=== PATIENT | female | born 1980 | race Caucasian/White ===

== ENCOUNTER 2016-08-01 23:21 | Emergency (ER) | payer MEDICAID ==
[2016-08-01 23:28] VITALS: TEMP 98.2
[2016-08-01] MEDS ORDERED: NS IV ONE (23:30)
[2016-08-01] MEDS ORDERED: LIDOCAINE 2% IV ONE (23:30)
[2016-08-01] MEDS ORDERED: ONDANSETRON 4 MG/2 ML VIAL IVP ONE (23:38)
[2016-08-01] MEDS ORDERED: NS 1,000 ML IV ONE ×2 (23:38)
[2016-08-01] MEDS ORDERED: LIDOCAINE 2% 100 MG/5 ML SYR IVP ONE (23:38)
[2016-08-01] MEDS ORDERED: KETOROLAC 30 MG/1 ML SDV IVP ONE (23:38)
--- NOTE | 2016-08-01 23:43 | EDPHY ---
H & P Stated Complaint: sudden onset R flank pain, hx kidney stones HPI/ROS: HPI The patient presents with right-sided flank pain, she is brought in by ambulance after 3 hours of pain which is dull in nature and does not radiate, has been constant and severe. It is associated with 3 episodes of vomiting as well as dysuria. She does not have hematuria, she does not have a fever. She has had kidney stones before, last episode of renal colic was 3 years ago, she required lithotripsy at [facility]. REVIEW OF SYSTEMS Constitutional: No fever, no chills. Eyes: No discharge. ENT: No sore throat. Cardiovascular: No chest pain, no palpitations. Respiratory: No cough, no shortness of breath. Gastrointestinal: See HPI Genitourinary: No hematuria. Musculoskeletal: No back pain. Skin: No rashes. Neurological: No headache. 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, alcohol and marijuana use PHYSICAL General Appearance: Uncomfortable appearing writhing on the gurney, poor eye contact Eyes: Pupils equal and round no pallor or injection ENT, Mouth: Mucous membranes moist Respiratory: There are no retractions, lungs are clear to auscultation Cardiovascular: Regular rate and rhythm Gastrointestinal: Abdomen is soft and non-tender, no masses, bowel sounds normal Back: Mild right flank tenderness Neurological: A&O, moves all extremities Skin: Warm and dry, no rashes Musculoskeletal: Neck is supple non tender Extremities: symmetrical, full range of motion Psychiatric: Patient is oriented X 3, there is no agitation Source: Patient, EMS Exam Limitations: No limitations - Personal History Tetanus Vaccine Date: 2012 - Medical/Surgical History Hx Asthma: No Hx Chronic Respiratory Disease: No Hx Diabetes: No Hx Cardiac Disease: No Hx Renal Disease: No Hx Cirrhosis: No Hx Alcoholism: Yes Hx HIV/AIDS: No Hx Splenectomy or Spleen Trauma: No Other PMH: PANCREATITIS, KIDNEY STONES, ETOH abuse, psychiatric issues, PTSD, depression, back pain, peripheral neuropathy - Social History Smoking Status: Current every day smoker Constitutional: Initial Vital Signs Temperature (C) 36.8 C 08/01/16 23:26 Heart Rate 91 08/01/16 23:26 Respiratory Rate 18 08/01/16 23:26 Blood Pressure 125/76 H 08/01/16 23:26 O2 Sat (%) 93 08/01/16 23:26 O2 Delivery Mode Room Air Allergies/Adverse Reactions: amoxicillin [Amoxicillin] Allergy (Verified 08/01/16 23:28) Penicillins Allergy (Verified 08/01/16 23:28) Home Medications: Medication Instructions Recorded Herbals/Supplements -Info Only 1 ea PO DAILY 06/06/15 Gabapentin [Neurontin 300 MG (*)] 300 mg PO BID@,16 #60 cap 06/08/15 Gabapentin [Neurontin 300 MG (*)] 600 mg PO HS #60 cap 06/08/15 traMADol [Ultram 50 mg (*)] 100 mg PO Q6 PRN #30 tab 06/08/15 Medical Decision Making - Diagnostics Imaging: Discussed imaging studies w/ scuba diving teacher Radiologist ED Course/Re-evaluation: I met the paramedics at the bedside to obtain their report. The patient has an IV established, I have ordered pain medication. The patient received Toradol and lidocaine IV with minimal improvement in her symptoms. Labs were checked and were all unremarkable including urinalysis. Ultrasound demonstrates a small stone within the kidney, however no hydronephrosis is demonstrated making renal colic unlikely. The cause of her pain could be muscular. She has had multiple CT scans, thus I feel that the risks of additional radiation are greater than the benefit of performing a CT scan today given my low suspicion for serious intra-abdominal pathology. I looked up the patient in the PD MP, she has multiple recent prescriptions for Brent and Ativan from the same prescriber. I have instructed her to go home and rest, she can take anti-inflammatories for her pain. I doubt any serious pathology here. I feel her pain is likely musculoskeletal. Differential Diagnosis: This is a 36-year-old female with history of kidney stones who presents with several hours of right-sided flank pain and dysuria with vomiting. On exam, she is uncomfortable appearing. She is brought in by ambulance. Differential diagnosis includes ureterolithiasis, pyelonephritis, less likely appendicitis, musculoskeletal pain. - Data Points Laboratory Results: Laboratory Results 08/01/16 23:50 08/01/16 23:50 08/01/16 08/01/16 08/01/16 23:50 23:50 00:15 WBC 9.82 10^3/uL H 10^3/uL (3.80-9.50) RBC 4.57 10^6/uL 10^6/uL (4.18-5.33) Hgb 15.0 g/dL g/dL (12.6-16.3) Hct 44.6 % % (38.0-47.0) MCV 97.6 fL fL (81.5-99.8) MCH 32.8 pg pg (27.9-34.1) MCHC 33.6 g/dL g/dL (32.4-36.7) RDW 14.8 % % (11.5-15.2) Plt Count 314 10^3/uL 10^3/uL (150-400) MPV 9.3 fL fL (8.7-11.7) Neut % (Auto) 47.7 % % (39.3-74.2) Lymph % (Auto) 44.4 % % (15.0-45.0) [place] % (Auto) 6.0 % % (4.5-13.0) Eos % (Auto) 0.7 % % (0.6-7.6) Baso % (Auto) 1.0 % % (0.3-1.7) Nucleat RBC Rel Count 0.0 % % (0.0-0.2) Absolute Neuts (auto) 4.68 10^3/uL 10^3/uL (1.70-6.50) Absolute Lymphs (auto) 4.36 10^3/uL H 10^3/uL (1.00-3.00) Absolute Monos (auto) 0.59 10^3/uL 10^3/uL (0.30-0.80) Absolute Eos (auto) 0.07 10^3/uL 10^3/uL (0.03-0.40) Absolute Basos (auto) 0.10 10^3/uL 10^3/uL (0.02-0.10) Absolute Nucleated RBC 0.00 10^3/uL 10^3/uL (0-0.01) Immature Gran % 0.2 % % (0.0-1.1) Immature Gran # 0.02 10^3/uL 10^3/uL (0.00-0.10) Sodium 149 mEq/L H mEq/L (134-144) Potassium 4.2 mEq/L mEq/L (3.5-5.2) Chloride 106 mEq/L mEq/L (97-110) Carbon Dioxide 25 mEq/l mEq/l (22-31) Anion Gap 18 mEq/L H mEq/L (8-16) BUN 4 mg/dL L mg/dL (7-23) Creatinine 0.6 mg/dL mg/dL (0.6-1.0) Estimated GFR > 60 Glucose 83 mg/dL mg/dL (70-100) Calcium 10.0 mg/dL mg/dL (8.5-10.4) Total Bilirubin 0.7 mg/dL mg/dL (0.1-1.4) Conjugated Bilirubin 0.5 mg/dL mg/dL (0.0-0.5) Unconjugated Bilirubin 0.2 mg/dL mg/dL (0.0-1.1) AST 56 IU/L H IU/L (14-46) ALT 51 IU/L IU/L (9-52) Alkaline Phosphatase 96 IU/L IU/L (38-126) Total Protein 8.2 g/dL g/dL (6.3-8.2) Albumin 5.0 g/dL g/dL (3.5-5.0) Lipase 236.0 IU/L IU/L (23-300) Urine Color PALE YELLOW Urine Appearance CLEAR Urine pH 7.0 (5.0-7.5) Ur Specific [place] 1.001 L (1.002-1.030) Urine Protein NEGATIVE (NEGATIVE) Urine Ketones NEGATIVE (NEGATIVE) Urine Blood NEGATIVE (NEGATIVE) Urine Nitrate NEGATIVE (NEGATIVE) Urine Bilirubin NEGATIVE (NEGATIVE) Urine Urobilinogen NEGATIVE EU EU (0.2-1.0) Ur Leukocyte Esterase NEGATIVE (NEGATIVE) Urine Glucose NEGATIVE (NEGATIVE) Medications Given: Discontinued Medications Sodium Chloride (Ns) 1,000 mls @ 0 mls/hr IV ONCE ONE PRN Reason: Wide Open Stop: 08/01/16 23:39 Last Admin: 08/01/16 23:50 Dose: 1,000 mls Sodium Chloride (Ns) 1,000 mls @ 0 mls/hr IV ONCE ONE PRN Reason: Wide Open Stop: 08/01/16 23:39 Last Admin: 08/02/16 00:05 Dose: 1,000 mls Lidocaine HCl 4.5 ml/ Sodium (Chloride) 104.5 mls @ 627 mls/hr IV EDNOW ONE Stop: 08/01/16 23:39 Last Admin: 08/02/16 00:05 Dose: 104.5 mls Ketorolac Tromethamine (Toradol) 30 mg IVP EDNOW ONE Stop: 08/01/16 23:39 Last Admin: 08/01/16 23:50 Dose: 30 mg Ondansetron HCl (Zofran) 4 mg IVP EDNOW ONE Stop: 08/01/16 23:39 Last Admin: 08/01/16 23:50 Dose: 4 mg Departure - Departure Disposition: Home, Routine, Self-Care Clinical Impression: Right flank pain Alcohol intoxication Qualifiers: Complication of substance-induced condition: uncomplicated Qualified Code(s): F10.120 - Alcohol abuse with intoxication, uncomplicated Condition: Good Instructions: Flank Pain (ED) Additional Instructions: Please return to the emergency room if your worse in any way. You can take ibuprofen and Tylenol for your pain. Referrals: CRISTINA,UNKNOWN [Other] - As per Instructions
[2016-08-01 23:58] LABS: % IMMATURE GRANULYOCYTES 0.2 % (0.0-1.1); ABSOLUTE IMMATURE GRANULOCYTES 0.02 10^3/uL (0.00-0.10); ADD DIFF? NO; ADD MORPH? NO; ADD SCAN? NO; ATYPICAL LYMPHOCYTE FLAG 0 (0-99); FRAGMENT RBC FLAG 0 (0-99); HEMATOCRIT 44.6 % (38.0-47.0); LEFT SHIFT FLG 0 (0-99); LIPEMIA HEMOLYSIS FLAG 80 (0-99); MEAN CELL HEMOGLOBIN 32.8 pg (27.9-34.1); MEAN CELL HEMOGLOBIN CONCENTR. 33.6 g/dL (32.4-36.7); MEAN CELL VOLUME 97.6 fL (81.5-99.8); MEAN PLATELET VOLUME 9.3 fL (8.7-11.7); PLATELET CLUMPS FLAG 0 (0-99); PLATELET COUNT 314 10^3/uL (150-400); RED BLOOD CELL COUNT 4.57 10^6/uL (4.18-5.33); RED CELL DISTRIBUTION WIDTH 14.8 % (11.5-15.2)
[2016-08-02 00:18] LABS: ALANINE AMINOTRANSFERASE 51 IU/L (9-52); ALKALINE PHOSPHATASE 96 IU/L (38-126); ANION GAP 18 mEq/L (8-16); ASPARTATE AMINOTRANSFERASE 56 IU/L (14-46); BILIRUBIN,TOTAL 0.7 mg/dL (0.1-1.4); BILIRUBIN-CONJUGATED 0.5 mg/dL (0.0-0.5); BILIRUBIN-UNCONJUGATED 0.2 mg/dL (0.0-1.1); CARBON DIOXIDE 25 mEq/l (22-31); CHLORIDE 106 mEq/L (97-110); CREATININE 0.6 mg/dL (0.6-1.0); GLOMERULAR FILTRATION RATE > 60; GLUCOSE 83 mg/dL (70-100); POTASSIUM 4.2 mEq/L (3.5-5.2); SODIUM 149 mEq/L (134-144); TOTAL PROTEIN 8.2 g/dL (6.3-8.2)
[2016-08-02 00:26] LABS: COLOR PALE YELLOW; LEUKOCYTE ESTERASE,URINE NEGATIVE (NEGATIVE); NITRITE,URINE NEGATIVE (NEGATIVE)
[2016-08-02 01:08] VITALS: BP 119/71; PULSE 80; RESP 16; O2SAT 97
== END 2016-08-02 01:08 | disposition home or self-care (01) ==
LOC: EDUNIT#
DX: R10.9 Unspecified abdominal pain (principal); F10.120 Alcohol abuse with intoxication, uncomplicated; F17.200 Nicotine dependence, unspecified, uncomplicated
CPT/HCPCS: 96374; J1885; J2001; J2405

== ENCOUNTER 2017-02-03 20:01 | Emergency (ER) | payer MEDICAID ==
[2017-02-03 20:09] VITALS: BP 121/88; PULSE 91; RESP 18; TEMP 97.9; O2SAT 93
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
== END 2017-02-03 21:19 | disposition home or self-care (01) ==
DX: S20.211A Contusion of right front wall of thorax, initial encounter (principal); F17.200 Nicotine dependence, unspecified, uncomplicated; W01.198A Fall on same level from slipping, tripping and stumbling with subsequent striking against other object, initial encounter

== ENCOUNTER 2017-04-18 15:22 | Emergency (ER) | payer MEDICAID ==
[2017-04-18 15:38] VITALS: BP 118/77; PULSE 81; RESP 16; TEMP 97.9; O2SAT 94
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
[2017-04-18] MEDS: KETOROLAC 30 MG/1 ML SDV IVP ONE ×2 (15:46→15:47)
== END 2017-04-18 16:15 | disposition home or self-care (01) ==
LOC: EDUNIT#
PROC: 2W28X4Z Dressing of Right Upper Extremity using Bandage (ICD-10-PCS; principal; 2017-04-18)
PROC: 2W29X4Z Dressing of Left Upper Extremity using Bandage (ICD-10-PCS; principal; 2017-04-18)
DX: T22.211A Burn of second degree of right forearm, initial encounter (principal); T22.212A Burn of second degree of left forearm, initial encounter; F17.200 Nicotine dependence, unspecified, uncomplicated; T31.0 Burns involving less than 10% of body surface; X12.XXXA Contact with other hot fluids, initial encounter; Y92.63 Factory as the place of occurrence of the external cause; Y99.0 Civilian activity done for income or pay; Y93.G3 Activity, cooking and baking
CPT/HCPCS: J1885

== ENCOUNTER 2017-04-25 15:39 | Emergency (ER) | payer MEDICAID ==
[2017-04-25] MEDS ORDERED: IBUPROFEN 600 MG TAB PO ONE (15:48)
[2017-04-25 15:50] VITALS: BP 112/76; PULSE 83; RESP 16; O2SAT 96
--- NOTE | 2017-04-25 15:55 | EDPHY ---
General Narrative: CHIEF COMPLAINT: Right shoulder pain HISTORY OF PRESENT ILLNESS: Patient presents by EMS with complaints of right shoulder pain. She reports chronic pain with this that has worsened acutely today. She said she slipped on the ice earlier, and injury to the right shoulder attempting to catch herself. She did not strike the shoulder on the ground. She did not hit her head or lose consciousness. She has ongoing pain in the shoulder due to slap tear pending surgical intervention. She has no numbness or tingling. No weakness. No chest pain or shortness of breath. No injury elsewhere. No other associated complaints or modifying factors. ESTABLISHED ORTHOPEDIST: Dr. Macias REVIEW OF SYSTEMS: Ten systems reviewed and are negative unless otherwise noted in the HPI PAST MEDICAL HISTORY: Nephrolithiasis, neuropathy, shoulder labrum injury PAST SURGICAL HISTORY: No recent surgeries SOCIAL HISTORY: Daily smoker FAMILY HISTORY: Noncontributory EXAMINATION General Appearance: Alert, no distress Cardiovascular: Symmetric radial pulses 2+. Good signs of perfusion. Neurological: A&O, light sensation to the lateral shoulder in dorsum of the hand is intact. Business Applications Developer strength symmetric. Skin: Warm and dry, no rash. No petechiae or purpura. Extremities: Tenderness of the right shoulder humeral head. Range of motion limited due to pain. No signs of trauma. Psychiatric: Mood and affect normal DIFFERENTIAL DIAGNOSES: Including but not limited to sprain, strain, slap tear, rotator cuff injury, malingering MDM: 3:45 p.m. Reported right shoulder pain with fall earlier today. No obvious dislocation on inspection. X-ray has been ordered to rule out fracture. She is in no acute distress. She is asked for pain medications multiple times both pre- hospital and during my brief examination. I have looked up her prescription monitoring program reports she has 3 narcotic prescriptions in the past 4 weeks. 4:25 p.m. X-ray as read by me, without the aid of the radiologist, reveals no acute findings. 4:30 p.m. Notified by RN that the patient has asked multiple times to have her IV removed and has become belligerent with her. I have re-evaluated the patient at this time. I discussed the negative x-ray. She has been very disrespectful belligerent. She is claiming that the nurses lying to her. She is claiming that were not treating her pain and voiced her dissatisfaction for lack of narcotic administration. I discussed that she has no fracture or dislocation and that she does not warrant any narcotics at this time. I discussed that she has had multiple prescriptions for narcotics in the past 30 days and exhibits possible drug-seeking behavior. I informed her that should she feel her pain is warranted she should follow up with her previous prescribing physicians for further pain medication. She is discharged home in stable condition at this time SUPERVISION: This patient was independently evaluated without direct involvement of or examination by the attending physician. ED Precautions: Worsening pain. Erythema, edema, cyanosis, pallor, paresthesia or anesthesia. - History Smoking Status: Current every day smoker - Objective Allergies/Adverse Reactions: amoxicillin [Amoxicillin] Allergy (Verified 02/03/17 20:08) Penicillins Allergy (Verified 02/03/17 20:08) Home Medications: Medication Instructions Recorded Gabapentin [Neurontin 300 MG (*)] 300 mg PO BID@,16 #60 cap 06/08/15 Gabapentin [Neurontin 300 MG (*)] 600 mg PO HS #60 cap 06/08/15 Cephalexin [Keflex] 500 mg PO TID 5 Days cap 04/18/17 Hydrocodone/APAP 5/325 [[place] 1 tab PO Q6 PRN #10 tab 04/18/17 5/325 (RX)] Wellbutrin Sr 04/18/17 Departure - Departure Disposition: Home, Routine, Self-Care Clinical Impression: Sprain of shoulder, right Qualifiers: Encounter type: initial encounter Shoulder sprain type: unspecified sprain Qualified Code(s): S43.401A - Unspecified sprain of right shoulder joint, initial encounter Condition: Good Instructions: Shoulder Sprain (ED) Additional Instructions: 1. Ibuprofen as prescribed as needed 2. Contact the on-call orthopedist as provided for outpatient care 3. ED precautions as discussed Referrals: Sergey Michael MD [Medical Doctor] - As per Instructions
--- NOTE | 2017-04-25 16:05 | ASMTCASEMG ---
Case Management Evaluation Functional: Able to Answers: Yes return Home with Prior Level of Function/Care Psychosocial Needs: Answers: Active Substance Abuse Notes: NO NARC- LIST Behavioral Health Issue Notes: Borderline personality disorder Date Signed: 04/25/2017 04:04 PM Electronically Signed By:Kendrick Lockett LCSW
--- NOTE | 2017-04-25 16:06 | ASMTLACE ---
LACE Length of stay for Answers: Less than 1 day current admission Acuity / Level of Answers: No Care: Did the patient have an inpatient admission? Comorbidities - select Answers: Opioid dependence all that apply / Chronic pain # of Emergency department Answers: 3-4 visits in the last 6 months Social determinants Answers: History of substance abuse (ETHO, street drugs, prescription drugs, etc.) Mental health diagnosis (anxiety, depression, pers onality disorders, etc.) Score: 13 Date Signed: 04/25/2017 04:05 PM Electronically Signed By:Kendrick Lockett LCSW
== END 2017-04-25 16:35 | disposition home or self-care (01) ==
LOC: EDUNIT#
DX: S43.401A Unspecified sprain of right shoulder joint, initial encounter (principal); F17.200 Nicotine dependence, unspecified, uncomplicated; W00.0XXA Fall on same level due to ice and snow, initial encounter

== ENCOUNTER 2017-06-19 16:58 | Emergency (ER) | payer MEDICAID ==
[2017-06-19 17:26] LABS: PLATELET COUNT 250 10^3/uL (150-400)
--- NOTE | 2017-06-19 17:40 | EDPHY ---
H & P Time Seen by Provider: 06/19/17 17:06 HPI/ROS: CHIEF COMPLAINT: Suicidal ideation HISTORY OF PRESENT ILLNESS: 37-year-old female with a history of anxiety, PTSD and depression presents with suicidal ideation. She had 4 shots of alcohol this afternoon, became quite sad and told someone that she would stick a director of vital statistics knife through her neck to kill herself. PD was contacted and she was placed on an M1 hold. She was transported to the emergency department by EMS. She has a recent history of auditory hallucinations and insomnia. She was recently placed on Seroquel and Valium because of severe anxiety and insomnia. No prior suicidal attempt. REVIEW OF SYSTEMS: Constitutional: No fever, no chills Eyes: No visual changes ENT: No sore throat Respiratory: No cough, no shortness of breath Cardiac: No chest pain Gastrointestinal: No nausea, no vomiting, no abdominal pain Genitourinary: No hematuria, no dysuria Musculoskeletal: No leg pain or swelling Skin: No rash Neurological: No headache, no weakness Past Medical/Surgical History: Depression PTSD Anxiety Social History: Heavy alcohol use No IVDA or illicit drug use. Smoking Status: Current every day smoker Physical Exam: General Appearance: Alert, cooperative, tearful Eyes: Pupils equal and round, conjunctival injection ENT, Mouth: Mucous membranes moist Neck: Normal inspection Respiratory: Lungs are clear to auscultation Cardiovascular: Regular rate and rhythm Gastrointestinal: Abdomen is soft and nontender Neurological: A&O, nonfocal, normal gait Skin: Warm and dry Extremities: Multiple healed metcalf on the volar aspect of the forearms Psychiatric: Sad and tearful Constitutional: Initial Vital Signs Temperature (C) 36.4 C 06/19/17 17:16 Heart Rate 81 06/19/17 17:16 Respiratory Rate 18 06/19/17 17:16 Blood Pressure 130/105 H 06/19/17 17:16 O2 Sat (%) 96 06/19/17 17:16 O2 Delivery Mode Room Air Allergies/Adverse Reactions: amoxicillin [Amoxicillin] Allergy (Verified 02/03/17 20:08) Penicillins Allergy (Verified 02/03/17 20:08) Home Medications: Medication Instructions Recorded Diazepam [Valium 5 MG (*)] 5 mg PO QID 06/19/17 Gabapentin [Neurontin 300 MG (*)] 900 mg PO TID 06/19/17 Ondansetron Odt [Zofran Odt 4 mg 4 mg PO Q6H PRN 06/19/17 (*)] QUEtiapine FUMARATE [Seroquel 100 100 - 200 mg PO HS 06/19/17 mg (*)] buPROPion XL [Wellbutrin Xl] 150 mg PO DAILY 06/19/17 Medical Decision Making ED Course/Re-evaluation: This patient presents after she made a suicidal statement. She denies suicidal ideation on my initial history taking. Medically cleared for mental health evaluation. This patient was seen by mental health and felt appropriate for outpatient treatment of depression. I agree with this assessment. The patient denies suicidal ideation. The 72 hr mental health hold was lifted by me. Differential Diagnosis: Differential diagnosis includes though it is not limited to suicidal ideation, overdose, acute psychosis, self-injury, alcohol withdrawal. - Data Points Laboratory Results: Laboratory Results 06/19/17 17:10 06/19/17 17:10 Medications Given: Discontinued Medications Diazepam (Valium) 5 mg PO EDNOW ONE Stop: 06/19/17 18:35 Last Admin: 06/19/17 18:39 Dose: 5 mg Gabapentin (Neurontin) 900 mg PO EDNOW ONE Stop: 06/19/17 21:09 Last Admin: 06/19/17 21:20 Dose: 900 mg Nicotine (Nicoderm Cq) 14 mg TD EDNOW ONE Stop: 06/19/17 17:58 Last Admin: 06/19/17 18:01 Dose: 14 mg Quetiapine Fumarate (Seroquel) 100 mg PO EDNOW ONE Stop: 06/19/17 21:09 Last Admin: 06/19/17 21:20 Dose: 100 mg Tramadol HCl (Ultram) 50 mg PO EDNOW ONE Stop: 06/19/17 21:10 Last Admin: 06/19/17 21:20 Dose: 50 mg Departure - Departure Disposition: Home, Routine, Self-Care Clinical Impression: Suicidal ideation Alcohol intoxication Qualifiers: Complication of substance-induced condition: uncomplicated Qualified Code(s): F10.920 - Alcohol use, unspecified with intoxication, uncomplicated Condition: Fair Instructions: Alcohol Intoxication (ED), Suicide Prevention for Adults (ED) Referrals: [facility] [Clinic] - As per Instructions (Follow-up tomorrow as suggested.)
[2017-06-19] MEDS ORDERED: NICOTINE 14 MG/24 HR PATCH TD ONE (17:57)
[2017-06-19] MEDS ORDERED: NICOTINE 21 MG/24 HR PATCH TD ONE (17:58)
[2017-06-19] MEDS ORDERED: DIAZEPAM 5 MG TAB PO ONE (18:34)
[2017-06-19] MEDS ORDERED: DIAZEPAM 5 MG TAB ONE (18:35)
[2017-06-19] MEDS ORDERED: QUEtiapine FUMARATE 200 MG TAB PO ONE (21:08)
[2017-06-19] MEDS ORDERED: GABAPENTIN 100 MG CAP PO ONE (21:08)
[2017-06-19] MEDS ORDERED: traMADol 50 MG TAB PO ONE (21:09)
[2017-06-19 21:48] VITALS: BP 106/77
== END 2017-06-19 21:56 | disposition home or self-care (01) ==
LOC: EDUNIT#
DX: R45.851 Suicidal ideations (principal); F10.920 Alcohol use, unspecified with intoxication, uncomplicated; F17.200 Nicotine dependence, unspecified, uncomplicated
CPT/HCPCS: 80305; G0480

== ENCOUNTER 2017-07-09 00:54 | Emergency (ER) | payer MEDICAID ==
[2017-07-09] MEDS ORDERED: NS 1,000 ML IV ONE ×2 (00:59→01:20)
[2017-07-09] MEDS ORDERED: NALOXONE HCL 0.4 MG/ML INJ IVP ONE (01:00)
--- NOTE | 2017-07-09 01:07 | EDPHY ---
H & P Time Seen by Provider: 07/09/17 00:54 HPI/ROS: HPI CHIEF COMPLAINT: Drug overdose, mumbling speech, sleepy HISTORY OF PRESENT ILLNESS: This patient is a 37-year-old female who presents to the emergency room by EMS from [facility] for being excessively sleepy and concerned that she may have ingested or overdose on benzodiazepine. EMS reports that she may have taken Valium, as well as possible narcotics as well as possible alcohol. She is at [facility] as of last week for rehabilitation. Staff there called 911 as she was found slumped over and chairs excessively sleepy. Hard to arouse. 911 was called the make contact with her brought her to the emergency room. EMS reports in route she states she may have taken some Valium. Upon arrival to the emergency room the patient is very sleepy. She has mumbling speech with lid lag. It Is hard understand what she is saying. Past Medical History: PTSD, anxiety, depression, heavy alcohol use Past Surgical History: No recent surgery Social History: Lives at [facility]. Family History: Noncontributory ROS REVIEW OF SYSTEMS: Review of systems limited due to patient's clinical state. Exam Constitutional sleepy, triage nursing summary reviewed, vital signs reviewed Eyes pupils are 3 mm equal sluggish, does have some horizontal beating nystagmus on exam, HENT normal inspection, atraumatic, moist mucus membranes, no epistaxis, neck supple/ no meningismus, no raccoon eyes. Respiratory clear to auscultation bilaterally, normal breath sounds, no respiratory distress, no wheezing. Cardiovascular rate normal, regular rhythm, no murmur, no edema, distal pulses normal. Gastrointestinal soft, non-tender, no rebound, no guarding, normal bowel sounds, no distension, no pulsatile mass. Genitourinary no CVA tenderness. Musculoskeletal no midline vertebral tenderness, full range of motion, no calf swelling, no tenderness of extremities, no meningismus, good pulses, neurovascularly intact. Skin pink, warm, & dry, no rash, skin atraumatic. Neurologic excessively sleepy, mumbling speech but moves everything, Psychiatric normal mood/affect. Heme/Lymph/Immune no lymphadenopathy. 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 Monitor closely for worsening depression of her mental state. Re-evaluation: EKG interpretation by me on record in [employer] system. Impression time of EKG 1:08 a.m., sinus rhythm rate of [address] elevation no ST depression no prolonged intervals. No signs of WPW or Brugada. ED x-ray chest one view: Negative for acute cardiopulmonary disease. 0123: 2 mg IV Narcan was given. There was no response. Still sleepy. 0340: Patient re-evaluated this time resting comfortably. Not excessively sleepy. Vital signs are stable. Urine drug screen pending 0433: Patient drug screen positive for benzos. This was most likely cause of her sedation. I did re-evaluate her at this time she is resting comfortably she is alert and oriented. She is awake. Hemodynamically stable with no recent a bray. Will plan for be discharged back to [facility]. Denies SI or HI denies want hurt herself or anybody else. 0518AM: Patient up ambulating speaking coherently to staff. She asked for a coloring book and crowns. She has no complaints. She denies want hurt herself or anybody else. She would like to be discharged back to her residence. She states she took Valium and had a glass of beer last night to go to sleep. She ambulated well. Mental state is back to baseline. She is not excessively sleepy. I will allow her to be discharged back to her living facility. Patient is taking Valium earlier this evening. Source: Patient, EMS - Personal History Tetanus Vaccine Date: 2012 - Medical/Surgical History Hx Asthma: No Hx Chronic Respiratory Disease: No Hx Diabetes: No Hx Cardiac Disease: No Hx Renal Disease: No Hx Cirrhosis: No Hx Alcoholism: Yes Hx HIV/AIDS: No Hx Splenectomy or Spleen Trauma: No Other PMH: PANCREATITIS, KIDNEY STONES, ETOH abuse, psychiatric issues, PTSD, depression, back pain, peripheral neuropathy - Social History Smoking Status: Current every day smoker Constitutional: Initial Vital Signs Temperature (C) 36.4 C 07/09/17 01:02 Heart Rate 80 07/09/17 01:02 Respiratory Rate 18 07/09/17 01:02 Blood Pressure 99/60 L 07/09/17 01:02 O2 Sat (%) 97 07/09/17 01:02 O2 Delivery Mode Room Air Allergies/Adverse Reactions: amoxicillin [Amoxicillin] Allergy (Verified 02/03/17 20:08) Penicillins Allergy (Verified 02/03/17 20:08) Home Medications: Medication Instructions Recorded Diazepam [Valium 5 MG (*)] 5 mg PO QID 06/19/17 Gabapentin [Neurontin 300 MG (*)] 900 mg PO TID 06/19/17 Ondansetron Odt [Zofran Odt 4 mg 4 mg PO Q6H PRN 06/19/17 (*)] QUEtiapine FUMARATE [Seroquel 100 100 - 200 mg PO HS 06/19/17 mg (*)] buPROPion XL [Wellbutrin Xl] 150 mg PO DAILY 06/19/17 Medical Decision Making - Data Points Laboratory Results: Laboratory Results 07/09/17 00:50 07/09/17 00:50 07/09/17 07/09/17 07/09/17 04:00 01:15 00:50 WBC RBC Hgb Hct MCV MCH MCHC RDW Plt Count MPV Neut % (Auto) Lymph % (Auto) [place] % (Auto) Eos % (Auto) Baso % (Auto) Nucleat RBC Rel Count Absolute Neuts (auto) Absolute Lymphs (auto) Absolute Monos (auto) Absolute Eos (auto) Absolute Basos (auto) Absolute Nucleated RBC Immature Gran % Immature Gran # PT 13.4 SEC SEC (12.0-15.0) INR 1.00 (0.83-1.16) APTT 33.0 SEC SEC (23.0-38.0) Sodium Potassium Chloride Carbon Dioxide Anion Gap BUN Creatinine Estimated GFR Glucose Calcium Magnesium Total Bilirubin Conjugated Bilirubin Unconjugated Bilirubin AST ALT Alkaline Phosphatase Total Protein Albumin Lipase Beta HCG, Qual NEGATIVE Salicylates Urine Opiates Screen NEGATIVE (NEGATIVE) Acetaminophen Urine Barbiturates NEGATIVE (NEGATIVE) Ur Phencyclidine Scrn NEGATIVE (NEGATIVE) Ur Amphetamine Screen NEGATIVE (NEGATIVE) U Benzodiazepines Scrn NON-NEGATIVE H (NEGATIVE) Urine Cocaine Screen NEGATIVE (NEGATIVE) U Marijuana (THC) Screen NON-NEGATIVE H (NEGATIVE) Ethyl Alcohol 07/09/17 07/09/17 00:50 00:50 WBC 8.27 10^3/uL 10^3/uL (3.80-9.50) RBC 3.97 10^6/uL L 10^6/uL (4.18-5.33) Hgb 12.8 g/dL g/dL (12.6-16.3) Hct 38.8 % % (38.0-47.0) MCV 97.7 fL fL (81.5-99.8) MCH 32.2 pg pg (27.9-34.1) MCHC 33.0 g/dL g/dL (32.4-36.7) RDW 14.6 % % (11.5-15.2) Plt Count 341 10^3/uL 10^3/uL (150-400) MPV 9.2 fL fL (8.7-11.7) Neut % (Auto) 33.5 % L % (39.3-74.2) Lymph % (Auto) 56.8 % H % (15.0-45.0) [place] % (Auto) 4.8 % % (4.5-13.0) Eos % (Auto) 3.5 % % (0.6-7.6) Baso % (Auto) 1.3 % % (0.3-1.7) Nucleat RBC Rel Count 0.0 % % (0.0-0.2) Absolute Neuts (auto) 2.76 10^3/uL 10^3/uL (1.70-6.50) Absolute Lymphs (auto) 4.70 10^3/uL H 10^3/uL (1.00-3.00) Absolute Monos (auto) 0.40 10^3/uL 10^3/uL (0.30-0.80) Absolute Eos (auto) 0.29 10^3/uL 10^3/uL (0.03-0.40) Absolute Basos (auto) 0.11 10^3/uL H 10^3/uL (0.02-0.10) Absolute Nucleated RBC 0.00 10^3/uL 10^3/uL (0-0.01) Immature Gran % 0.1 % % (0.0-1.1) Immature Gran # 0.01 10^3/uL 10^3/uL (0.00-0.10) PT INR APTT Sodium 140 mEq/L mEq/L (135-145) Potassium 5.4 mEq/L H mEq/L (3.5-5.2) Chloride 103 mEq/L mEq/L (97-110) Carbon Dioxide 26 mEq/l mEq/l (22-31) Anion Gap 11 mEq/L mEq/L (8-16) BUN 11 mg/dL mg/dL (7-23) Creatinine 0.6 mg/dL mg/dL (0.6-1.0) Estimated GFR > 60 Glucose 78 mg/dL mg/dL (70-100) Calcium 9.8 mg/dL mg/dL (8.5-10.4) Magnesium 2.1 mg/dL mg/dL (1.6-2.3) Total Bilirubin 0.6 mg/dL mg/dL (0.1-1.4) Conjugated Bilirubin 0.6 mg/dL H mg/dL (0.0-0.5) Unconjugated Bilirubin 0.0 mg/dL mg/dL (0.0-1.1) AST 37 IU/L IU/L (14-46) ALT 43 IU/L IU/L (9-52) Alkaline Phosphatase 41 IU/L IU/L (38-126) Total Protein 7.5 g/dL g/dL (6.3-8.2) Albumin 4.4 g/dL g/dL (3.5-5.0) Lipase 115 IU/L IU/L (23-300) Beta HCG, Qual Salicylates < 1.0 mg/dL L mg/dL (2.0-20.0) Urine Opiates Screen Acetaminophen < 10 mcg/mL L mcg/mL (10-30) Urine Barbiturates Ur Phencyclidine Scrn Ur Amphetamine Screen U Benzodiazepines Scrn Urine Cocaine Screen U Marijuana (THC) Screen Ethyl Alcohol 43 mg/dL H mg/dL (0-10) Medications Given: Discontinued Medications Sodium Chloride (Ns) 1,000 mls @ 0 mls/hr IV EDNOW ONE; Wide Open PRN Reason: Protocol Stop: 07/09/17 01:00 Last Admin: 07/09/17 01:05 Dose: 1,000 mls Sodium Chloride (Ns) 1,000 mls @ 0 mls/hr IV ONCE ONE PRN Reason: Wide Open Stop: 07/09/17 01:21 Last Admin: 07/09/17 01:24 Dose: 1,000 mls Naloxone HCl (Narcan) 2 mg IVP EDNOW ONE Stop: 07/09/17 01:01 Last Admin: 07/09/17 01:14 Dose: 2 mg Departure - Departure Disposition: Home, Routine, Self-Care Clinical Impression: Polysubstance abuse Condition: Good Instructions: Polysubstance Abuse (ED) Referrals: Patient,NotPresent [Primary Care Provider] - As per Instructions
--- NOTE | 2017-07-09 01:10 | CPEKG ---
Heart Rate: 75 RR Interval: 800 P-R Interval: 160 QRSD Interval: 68 QT Interval: 388 QTC Interval: 434 P Madison: 46 QRS Madison: 55 T Wave Madison: 39 EKG Severity - NORMAL ECG - EKG Impression: SINUS RHYTHM Electronically Signed By: Raheem Briceno 09-Jul-2017 06:52:54
[2017-07-09] MEDS ORDERED: NALOXONE HCL 0.4 MG/ML INJ ONE (01:11)
[2017-07-09 01:17] LABS: PLATELET COUNT 341 10^3/uL (150-400)
[2017-07-09 01:32] LABS: PROTIME(PATIENT) 13.4 SEC (12.0-15.0)
[2017-07-09 05:43] VITALS: BP 102/68
== END 2017-07-09 06:08 | disposition home or self-care (01) ==
LOC: EDUNIT#
DX: F19.10 Other psychoactive substance abuse, uncomplicated (principal); E86.9 Volume depletion, unspecified; F17.200 Nicotine dependence, unspecified, uncomplicated
CPT/HCPCS: 80305; 96374; G0480; J2310

== ENCOUNTER 2017-07-09 19:41 | Emergency (ER) | payer MEDICAID ==
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
[2017-07-09 20:45] LABS: PLATELET COUNT 346 10^3/uL (150-400)
[2017-07-10] MEDS ORDERED: GABAPENTIN 300 MG CAP PO ONE ×2 (00:49→01:15)
[2017-07-10] MEDS ORDERED: QUEtiapine FUMARATE 300 MG TAB PO ONE ×3 (00:50→20:41)
[2017-07-10] MEDS: GABAPENTIN 300 MG CAP PO SCH ×2 (11:22→19:35)
[2017-07-10] MEDS: buPROPion XL 150 MG TAB PO SCH (12:20)
[2017-07-10] MEDS ORDERED: NICOTINE 21 MG/24 HR PATCH TD ONE (20:42)
[2017-07-11] MEDS: GABAPENTIN 300 MG CAP PO SCH ×2 (04:05→08:03)
[2017-07-11] MEDS: buPROPion XL 150 MG TAB PO SCH (08:03)
[2017-07-11 11:22] VITALS: BP 100/65
== END 2017-07-11 11:31 ==
LOC: EDUNIT#
DX: T42.4X2A Poisoning by benzodiazepines, intentional self-harm, initial encounter (principal); F17.200 Nicotine dependence, unspecified, uncomplicated
CPT/HCPCS: 80305; G0480

== ENCOUNTER 2017-07-17 19:17 | Emergency (ER) | payer MEDICAID ==
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
[2017-07-17] MEDS ORDERED: QUEtiapine FUMARATE 300 MG TAB PO ONE (21:18)
[2017-07-17] MEDS ORDERED: GABAPENTIN 300 MG CAP PO ONE (21:18)
[2017-07-17] MEDS ORDERED: DIAZEPAM 5 MG TAB PO ONE (21:18)
[2017-07-17 21:57] VITALS: BP 110/70
== END 2017-07-17 22:57 | disposition home or self-care (01) ==
DX: F41.9 Anxiety disorder, unspecified (principal); F31.9 Bipolar disorder, unspecified; F43.10 Post-traumatic stress disorder, unspecified; F17.200 Nicotine dependence, unspecified, uncomplicated
CPT/HCPCS: 80305; G0480

== ENCOUNTER 2017-11-13 19:56 | Emergency (ER) | payer MEDICAID ==
--- NOTE | 2017-11-13 20:30 | EDPHY ---
H & P Time Seen by Provider: 11/13/17 20:29 HPI/ROS: Chief complaint. Headache HPI. Patient is a 37-year-old female with headache for 3 days. She awoke with the headache and it was fairly mild to begin with but has gradually worsened over the past 3 days. No sudden or thunderclap onset. Slightly dizzy on standing. She tells me decreased peripheral vision and straight on vision is slightly blurry. The headache is by temporal. Nausea vomiting yesterday but not today. She feels tired and somewhat dizzy on standing. She has not had similar headache previously. She denies fever her upper respiratory symptoms. No recent head injury. No chest or abdominal pain. No weakness or paresthesias to arms or legs. ROS Constitutional. no fever/chills, no weakness Eyes. Blurry vision and decreased peripheral vision ENT. no sore throat, no nasal drainage Cardiovascular. no chest pain Respiratory. no shortness of breath, no cough Abdominal. no abdominal pain, no nausea/vomiting, no diarrhea . no problems urinating MS. no calf pain/swelling, no neck/back pain, no joint pain Skin. no rash Lymph. no swollen glands Neuro. Headache Past Medical/Surgical History: Pancreatitis, kidney stones, alcoholism, PTSD, depression, anxiety, peripheral neuropathy Social History: , daily smoker, no alcohol Smoking Status: Heavy smoker Physical Exam: General Appearance: Alert well-developed female mild distress vital signs are stable Eyes: Pupils equal round reactive. Funduscopic exam is normal. Visual reaves testing appears normal without field cuts. ENT, Mouth: Mucous membranes are moist. Respiratory: There are no retractions, lungs are clear to auscultation. Cardiovascular: Regular rate and rhythm. Gastrointestinal: Abdomen is soft and nontender, no masses, bowel sounds normal. Neurological: Awake and alert, sensory and motor exams grossly normal. Speech is normal. Cranial nerves are intact. There is no pronator drift. Finger-to- nose and [id number] are intact bilaterally Skin: Warm and dry, no rashes. Musculoskeletal: Neck is supple nontender. Extremities symmetrical, full range of motion. Psychiatric: Patient is oriented X 3, there is no agitation. Constitutional: Initial Vital Signs Temperature (C) 37.1 C 11/13/17 20:00 Heart Rate 86 11/13/17 20:00 Respiratory Rate 16 11/13/17 20:00 Blood Pressure 133/105 H 11/13/17 20:00 O2 Sat (%) 98 11/13/17 20:00 O2 Delivery Mode Room Air Allergies/Adverse Reactions: amoxicillin [Amoxicillin] Allergy (Verified 07/09/17 19:43) Penicillins Allergy (Verified 07/09/17 19:43) Home Medications: Medication Instructions Recorded Gabapentin [Neurontin 300 MG (*)] 900 mg PO TID 06/19/17 QUEtiapine FUMARATE [Seroquel 100 100 - 200 mg PO HS 06/19/17 mg (*)] Anabuse 11/13/17 Zofran 11/13/17 buPROPion [Wellbutrin 100mg (*)] 11/13/17 Medical Decision Making - Diagnostics Imaging Results: Imaging Impressions Head CT 11/13/17 20:52 Impression: No acute intracranial findings. Dr. Poon was notified of these findings at 9:36 PM on 11/13/[address] head reviewed by me and discussed with radiologist shows no evidence of intracranial blood or tumor. It is a normal head CT Procedures: IV normal saline ED Course/Re-evaluation: Re-evaluation 9:45 p.m.. Patient is stable. Somewhat improved though continuing with headache. Neurologically intact. Patient and I discussed imaging and lab results. We discussed treatment plan including further medication. She expresses understanding and agreement Re-evaluation 10:50 p.m. Patient is much better. Essentially headache gone. Neurologically intact. Conversational. Differential Diagnosis: I considered intracranial bleeding, subarachnoid hemorrhage, migraines, tension headache. No evidence for intracranial bleeding or subarachnoid hemorrhage - Data Points Laboratory Results: Laboratory Results 11/13/17 20:34 11/13/17 20:34 11/13/17 11/13/17 20:34 20:34 WBC 7.45 10^3/uL 10^3/uL (3.80-9.50) RBC 4.14 10^6/uL L 10^6/uL (4.18-5.33) Hgb 13.3 g/dL g/dL (12.6-16.3) Hct 38.7 % % (38.0-47.0) MCV 93.5 fL fL (81.5-99.8) MCH 32.1 pg pg (27.9-34.1) MCHC 34.4 g/dL g/dL (32.4-36.7) RDW 13.2 % % (11.5-15.2) Plt Count 300 10^3/uL 10^3/uL (150-400) MPV 9.1 fL fL (8.7-11.7) Neut % (Auto) 58.9 % % (39.3-74.2) Lymph % (Auto) 32.6 % % (15.0-45.0) [place] % (Auto) 6.7 % % (4.5-13.0) Eos % (Auto) 0.8 % % (0.6-7.6) Baso % (Auto) 0.9 % % (0.3-1.7) Nucleat RBC Rel Count 0.0 % % (0.0-0.2) Absolute Neuts (auto) 4.38 10^3/uL 10^3/uL (1.70-6.50) Absolute Lymphs (auto) 2.43 10^3/uL 10^3/uL (1.00-3.00) Absolute Monos (auto) 0.50 10^3/uL 10^3/uL (0.30-0.80) Absolute Eos (auto) 0.06 10^3/uL 10^3/uL (0.03-0.40) Absolute Basos (auto) 0.07 10^3/uL 10^3/uL (0.02-0.10) Absolute Nucleated RBC 0.00 10^3/uL 10^3/uL (0-0.01) Immature Gran % 0.1 % % (0.0-1.1) Immature Gran # 0.01 10^3/uL 10^3/uL (0.00-0.10) Sodium 139 mEq/L mEq/L (135-145) Potassium 4.1 mEq/L mEq/L (3.3-5.0) Chloride 102 mEq/L mEq/L (97-110) Carbon Dioxide 27 mEq/l mEq/l (22-31) Anion Gap 10 mEq/L mEq/L (8-16) BUN 8 mg/dL mg/dL (7-23) Creatinine 0.7 mg/dL mg/dL (0.6-1.0) Estimated GFR > 60 Glucose 88 mg/dL mg/dL (70-100) Calcium 9.9 mg/dL mg/dL (8.5-10.4) Medications Given: Discontinued Medications Dexamethasone (Decadron Injection) 10 mg IVP EDNOW ONE Stop: 11/13/17 20:53 Last Admin: 11/13/17 21:10 Dose: 10 mg Diphenhydramine HCl (Benadryl Injection) 25 mg IVP EDNOW ONE Stop: 11/13/17 20:53 Last Admin: 11/13/17 21:05 Dose: 25 mg Sodium Chloride (Ns) 1,000 mls @ 0 mls/hr IV ONCE ONE; Wide Open PRN Reason: Protocol Stop: 11/13/17 20:53 Last Admin: 11/13/17 21:04 Dose: 1,000 mls Ketorolac Tromethamine (Toradol) 30 mg IVP EDNOW ONE Stop: 11/13/17 20:53 Last Admin: 11/13/17 21:07 Dose: 30 mg Metoclopramide HCl (Reglan Injection) 10 mg IVP EDNOW ONE Stop: 11/13/17 20:53 Last Admin: 11/13/17 21:09 Dose: 10 mg Morphine Sulfate (Morphine) 6 mg IVP EDNOW ONE Stop: 11/13/17 21:51 Last Admin: 11/13/17 22:11 Dose: 6 mg Departure - Departure Disposition: Home, Routine, Self-Care Clinical Impression: Headache Qualifiers: Headache type: unspecified Headache chronicity pattern: acute headache Intractability: intractable Qualified Code(s): R51 - Headache Condition: Good Instructions: Acute Headache (ED) Additional Instructions: Tylenol 650 mg every 4-6 hours, ibuprofen 600 mg every 6 hr as needed for headache Return for worsening symptoms. Recheck in 2 days if not continuing to improve For your urinalysis and tox screen for probation we gave you Reglan, Toradol, Benadryl. We also gave you morphine intravenously Referrals: Noelle Hawk [Primary Care Provider] - 2-3 days, if not improved
[2017-11-13] MEDS ORDERED: METOCLOPRAMIDE 10 MG/2 ML VIAL IVP ONE (20:52)
[2017-11-13] MEDS ORDERED: DEXAMETHASONE 10 MG/ML VIAL IVP ONE (20:52)
[2017-11-13] MEDS ORDERED: KETOROLAC 30 MG/1 ML SDV IVP ONE (20:52)
[2017-11-13] MEDS ORDERED: NS 1,000 ML IV ONE (20:52)
[2017-11-13 20:58] LABS: PLATELET COUNT 300 10^3/uL (150-400)
[2017-11-13 23:06] VITALS: BP 123/81
== END 2017-11-13 23:11 | disposition home or self-care (01) ==
DX: R51 Headache (principal); E86.9 Volume depletion, unspecified; F17.200 Nicotine dependence, unspecified, uncomplicated
CPT/HCPCS: 96374; J1100; J1200; J1885; J2270; J2765